=== PATIENT | male | born 1965 | race Caucasian/White ===

== ENCOUNTER → 2017-06-20 | Outpatient (REF) | payer OTHER ==
[~2017-06-20] MED LIST: ASPI81CH PO; ATIV2TAB PO; PERC7.5T12 PO
[2017-06-20 12:08] LABS: BASO # 0.1 10^3/uL (0.0-0.2); BASO % 1.2 % (0.0-1.0); EOS # 0.1 10^3/uL (0.0-0.50); EOS % 2.4 % (0.0-3.0); IMMATURE GRANULOCYTE % 0.2 % (0-0); LYMPH # 1.1 10^3/uL (1.5-4.5); LYMPH % 26.5 % (24.0-44.0); MEAN CORPUSCULAR HEMOGLOBIN 30.5 pg (27.0-33.0); MEAN CORPUSCULAR HGB CONC 33.3 g/dl (32.0-36.5); MEAN CORPUSCULAR VOLUME 91.6 fl (80.0-96.0); MONO # 0.4 10^3/uL (0.0-0.8); NEUTROPHILS # 2.5 10^3/uL (1.8-7.7); NEUTROPHILS % 59.7 % (36.0-66.0); PLATELET COUNT, AUTOMATED 301 10^3/uL (150-450); RED CELL DISTRIBUTION WIDTH 12.4 % (11.5-14.5); WHITE BLOOD COUNT 4.1 10^3/uL (4.0-10.0)
[2017-06-20 13:03] LABS: ALBUMIN 3.9 GM/DL (3.2-5.2); ALBUMIN/GLOBULIN RATIO 1.56 (1.00-1.93); ALKALINE PHOSPHATASE 62 U/L (45-117); ALT/SGPT 29 U/L (12-78); ANION GAP 6 MEQ/L (8-16); AST/SGOT 16 U/L (7-37); BILIRUBIN,TOTAL 0.7 MG/DL (0.2-1.0); BLOOD UREA NITROGEN 14 MG/DL (7-18); CALCIUM LEVEL 8.6 MG/DL (8.5-10.1); CARBON DIOXIDE LEVEL 31 MEQ/L (21-32); CHLORIDE LEVEL 105 MEQ/L (98-107); CHOLESTEROL LEVEL 179 MG/DL (<200); CREATININE FOR GFR 0.79 MG/DL (0.70-1.30); GLOMERULAR FILTRATION RATE > 60.0 (>56); GLUCOSE, FASTING 83 MG/DL (70-105); MAGNESIUM LEVEL 2.2 MG/DL (1.8-2.4); POTASSIUM SERUM 4.6 MEQ/L (3.5-5.1); SODIUM LEVEL 142 MEQ/L (136-145); TOTAL PROTEIN 6.4 GM/DL (6.4-8.2); TRIGLYCERIDES LEVEL 62 MG/DL (<150)
== END ==
LOC: M LABDRAW1 09:42
PROVIDERS: ATTEND Emergency Medicine
DX: Z00.00 Encounter for general adult medical examination without abnormal findings (principal); R25.2 Cramp and spasm

== ENCOUNTER 2018-02-03 09:43 | Emergency (ER) | payer OTHER ==
[2018-02-03] MEDS: KETOROLAC 60 MG/2 ML VIAL (J1885) IM (10:14)
== END 2018-02-03 10:34 | disposition home or self-care (01) ==
LOC: M ED 09:43
DX: M54.32 Sciatica, left side (principal); K21.9 Gastro-esophageal reflux disease without esophagitis; Z88.5 Allergy status to narcotic agent; Z79.899 Other long term (current) drug therapy
CPT/HCPCS: J1885

== ENCOUNTER 2018-06-15 08:09 | Day surgery (SDC) | payer OTHER ==
[2018-06-15] MEDS: NS 1,000 ML IV (09:00)
[2018-06-15] MEDS ORDERED: LIDOCAINE 2% INJ 100 MG/5 ML SDV (FOR ANES.) As Ordered (09:33)
[2018-06-15] MEDS ORDERED: PROPOFOL 200 MG/20 ML VIAL As Ordered ×2 (09:33→09:51)
== END 2018-06-15 10:25 | disposition home or self-care (01) ==
LOC: M OPP 08:09
DX: Z12.11 Encounter for screening for malignant neoplasm of colon (principal); K57.30 Diverticulosis of large intestine without perforation or abscess without bleeding; K64.8 Other hemorrhoids
CPT/HCPCS: 45378

== ENCOUNTER 2018-06-26 15:11 | Emergency (ER) | payer OTHER | END 2018-06-26 17:54 | disposition home or self-care (01) | LOC: M ED 15:11 | DX: Z76.0 Encounter for issue of repeat prescription (principal); K21.9 Gastro-esophageal reflux disease without esophagitis; Z88.5 Allergy status to narcotic agent | CPT/HCPCS: 99283 ==

== ENCOUNTER 2018-09-04 17:25 | Emergency (ER) | payer OTHER, SELFPAY ==
[~2018-09-04] VITALS: Ht 167.6 cm; Wt 75.0 kg
[~2018-09-04 17:25] MED LIST changes: +HYDR-3719 PO; +IBUP80TA PO; +NORC10TA21 PO; +NORCOTAB PO; +OMEP40CA2 PO; +ROBA500T PO; +VICO10TA11 PO
[2018-09-04 17:26] VITALS: BP 141/90
[2018-09-04] MEDS ORDERED: SILVER SULFADIAZINE 1% CR 50 GM JAR TOP ONE (18:30)
[2018-09-04] MEDS ORDERED: OMEP40CA2 PO (18:34)
[2018-09-04] MEDS ORDERED: NORC10TA21 PO (18:34)
== END 2018-09-04 18:55 | disposition home or self-care (01) ==
LOC: M ED 18:45
DX: T22.512A Corrosion of first degree of left forearm, initial encounter (principal); T65.891A Toxic effect of other specified substances, accidental (unintentional), initial encounter; Y92.89 Other specified places as the place of occurrence of the external cause; Z76.0 Encounter for issue of repeat prescription; M54.9 Dorsalgia, unspecified; M79.622 Pain in left upper arm; G89.29 Other chronic pain; Z88.5 Allergy status to narcotic agent

== ENCOUNTER 2018-12-09 09:11 | Emergency (ER) | payer OTHER ==
[~2018-12-09] VITALS: Ht 167.6 cm; Wt 74.5 kg
[2018-12-09 09:11] VITALS: BP 127/78
[~2018-12-09 09:11] MED LIST changes: +HYDR-3715 PO; -NORC10TA21 PO; +NORC1TAB5 PO; -NORCOTAB PO
[2018-12-09] MEDS ORDERED: ZYRTTAB8 PO (09:37)
[2018-12-09] MEDS ORDERED: MUCI600T31 PO (09:37)
[2018-12-09] MEDS ORDERED: FLON1SPR NARES (09:37)
== END 2018-12-09 09:57 | disposition home or self-care (01) ==
LOC: M ED 09:11
DX: J01.90 Acute sinusitis, unspecified (principal); J30.89 Other allergic rhinitis; Z88.5 Allergy status to narcotic agent

== ENCOUNTER → 2019-03-24 | Outpatient (CLI) | payer OTHER ==
[~2019-03-24] MED LIST changes: +FLON1SPR NARES; +MUCI600T31 PO; +ZYRTTAB8 PO
[2019-03-24 08:47] LABS: HEMATOCRIT 45.3 % (42.0-52.0); HEMOGLOBIN 14.9 g/dl (13.5-17.5); MEAN CORPUSCULAR HEMOGLOBIN 30.5 pg (27.0-33.0); MEAN CORPUSCULAR HGB CONC 32.9 g/dl (32.0-36.5); MEAN CORPUSCULAR VOLUME 92.6 fl (80.0-96.0); PLATELET COUNT, AUTOMATED 279 10^3/uL (150-450); RED BLOOD COUNT 4.89 10^6/uL (4.30-6.10); WHITE BLOOD COUNT 4.6 10^3/uL (4.0-10.0)
--- NOTE | 2019-03-24 08:51 | REP ---
PA and lateral chest: Comparison is 11/27/2009. The lung monsivais are clear. Cardiac size is normal. The maria luisa and mediastinum are unremarkable. There is scoliosis convex right, unchanged. There is an old right eighth rib fracture. Impression: No acute cardiopulmonary findings. Old right eighth rib fracture. Scoliosis. Electronically Signed by Aly Vyas MD 03/24/2019 08:42 A
[2019-03-24 09:07] LABS: HEMOGLOBIN A1c 5.6 %
[2019-03-24 09:18] LABS: ALBUMIN 3.8 GM/DL (3.2-5.2); ALT/SGPT 26 U/L (12-78); BILIRUBIN,TOTAL 0.3 MG/DL (0.2-1.0); BLOOD UREA NITROGEN 15 MG/DL (7-18); CALCIUM LEVEL 8.6 MG/DL (8.5-10.1); CARBON DIOXIDE LEVEL 32 MEQ/L (21-32); CHLORIDE LEVEL 107 MEQ/L (98-107); CHOLESTEROL LEVEL 181 MG/DL (<200); CHOLESTEROL RISK RATIO 3.016 (<5); CREATININE FOR GFR 0.82 MG/DL (0.70-1.30); FREE T4 0.87 NG/DL (0.76-1.46); GLOMERULAR FILTRATION RATE > 60.0 (>56); GLUCOSE, FASTING 100 MG/DL (70-100); HDL CHOLESTEROL 60 MG/DL (>40); LDL CHOLESTEROL 108 MG/DL (<100); NON-HDL-C 121 MG/DL; POTASSIUM SERUM 4.8 MEQ/L (3.5-5.1); PROSTATIC SPECIFIC AG MONITOR 0.42 NG/ML (< 4.00); SODIUM LEVEL 143 MEQ/L (136-145); TOTAL PROTEIN 6.2 GM/DL (6.4-8.2); TRIGLYCERIDES LEVEL 63 MG/DL (<150)
--- NOTE | 2019-03-24 14:53 | ECGEPIP ---
[facility] Test Date: 2019-03-24 Pat Name: DEBBIE CRAFT Department: Room: - Gender: Male Applied Research Director: CAYETANO : 1965 Requested By: Jovita Greene Order Number: [id number] Reading MD: Pedro Coombs Measurements Intervals [place] Rate: 59 P: 35 WA: 173 QRS: 31 QRSD: 94 T: 12 QT: 395 QTc: 393 Interpretive Statements SINUS BRADYCARDIA NO PRIOR Electronically Signed on 03-24-2019 14:53:29 EDT by Pedro Coombs
[2019-03-26 10:38] LABS: TESTOSTERONE 513 NG/DL (241-827)
[2019-03-26 10:39] LABS: TOTAL T3 106.8 NG/DL (60.0-181.0)
== END ==
LOC: M LAB 07:40
PROVIDERS: ATTEND Family Medicine
DX: D64.9 Anemia, unspecified (principal); E03.9 Hypothyroidism, unspecified; R53.83 Other fatigue

== ENCOUNTER → 2020-06-20 | Outpatient (CLI) | payer OTHER ==
[~2020-06-20] MED LIST changes: -OMEP40CA2 PO; +OMEP40CA97 PO
--- NOTE | 2020-06-20 13:11 | REP ---
INDICATION: SCIATICA COMPARISON: None TECHNIQUE: Four views each knee, five views lumbar spine FINDINGS: Right knee: There is slight tricompartmental marginal osteophytosis with patellofemoral joint space narrowing. There is no acute fracture, dislocation, or subluxation. There is asymmetric patellofemoral joint space narrowing which is moderate. Left knee: There is moderate tricompartmental marginal osteophytosis with medial compartmental narrowing and subchondral sclerosis. There is asymmetric patellofemoral joint space narrowing which is moderate to severe. Lumbar spine: There is bilateral marginal osteophytosis heaviest at the L1-2 level. There is anterior lipping from L1-L4. There is moderate to severe L3-4 disc space narrowing with more moderate disc space narrowing at all other levels. Vertebral body height and alignment is within normal limits. Degenerative facet joint changes are seen bilaterally at every level. The pedicles are intact bilaterally. There is partial sacralization of L5 on the left. IMPRESSION: Bilateral knee and lumbosacral spine chronic changes as described above. <Electronically signed by Aki Duran > 06/20/20 1291
== END ==
LOC: M RAD 09:42
PROVIDERS: ATTEND Family Medicine
DX: M54.30 Sciatica, unspecified side (principal); M25.761 Osteophyte, right knee; M25.762 Osteophyte, left knee; M25.78 Osteophyte, vertebrae; M51.36 Other intervertebral disc degeneration, lumbar region

== ENCOUNTER → 2021-05-18 | Outpatient (CLI) | payer BC ==
[~2021-05-18] MED LIST changes: +OMEP40CA4 PO; -OMEP40CA97 PO
[2021-05-18 10:57] LABS: HEMATOCRIT 45.2 % (42.0-52.0); MEAN CORPUSCULAR HEMOGLOBIN 30.3 pg (27.0-33.0); MEAN CORPUSCULAR HGB CONC 33.2 g/dl (32.0-36.5); MEAN CORPUSCULAR VOLUME 91.3 fl (80.0-96.0); PLATELET COUNT, AUTOMATED 296 10^3/uL (150-450); RED BLOOD COUNT 4.95 10^6/uL (4.30-6.10); WHITE BLOOD COUNT 4.9 10^3/uL (4.0-10.0)
[2021-05-18 11:31] LABS: HEMOGLOBIN A1c 5.1 %
[2021-05-18 11:36] LABS: ALBUMIN 3.8 GM/DL (3.2-5.2); ALT/SGPT 26 U/L (12-78); BILIRUBIN,TOTAL 0.6 MG/DL (0.2-1.0); BLOOD UREA NITROGEN 13 MG/DL (7-18); CALCIUM LEVEL 8.6 MG/DL (8.5-10.1); CARBON DIOXIDE LEVEL 30 MEQ/L (21-32); CHLORIDE LEVEL 107 MEQ/L (98-107); CHOLESTEROL LEVEL 207 MG/DL (<200); CHOLESTEROL RISK RATIO 2.915 (<5); CREATININE FOR GFR 0.85 MG/DL (0.70-1.30); GLOMERULAR FILTRATION RATE > 60.0 (>56); GLUCOSE, FASTING 85 MG/DL (70-100); HDL CHOLESTEROL 71 MG/DL (>40); LDL CHOLESTEROL 120 MG/DL (<100); NON-HDL-C 136 MG/DL; POTASSIUM SERUM 4.6 MEQ/L (3.5-5.1); SODIUM LEVEL 141 MEQ/L (136-145); TESTOSTERONE 678 NG/DL (241-827); TOTAL PROTEIN 6.5 GM/DL (6.4-8.2); TRIGLYCERIDES LEVEL 79 MG/DL (<150)
== END ==
LOC: M LAB 09:12
PROVIDERS: ATTEND Family Medicine
DX: E03.9 Hypothyroidism, unspecified (principal); R53.83 Other fatigue; D64.9 Anemia, unspecified

== ENCOUNTER → 2022-10-13 | Outpatient (REF) | payer BC ==
[2022-10-13 22:21] LABS: GC DNA AMPLIFICATION NEGATIVE (NEGATIVE)
== END ==
LOC: M WUC 19:42
PROVIDERS: ATTEND Student in an Organized Health Care Education/Training Program
DX: N48.29 Other inflammatory disorders of penis (principal)

== ENCOUNTER → 2023-06-28 | Outpatient (CLI) | payer BC, SELFPAY ==
[2023-06-28 18:58] LABS: BASO # 0.1 10^3/uL (0.0-0.2); EOS # 0.2 10^3/uL (0.0-0.5); HEMATOCRIT 43.5 % (42.0-52.0); HEMOGLOBIN 14.5 g/dl (13.5-17.5); LYMPH % 29.5 % (24.0-44.0); MEAN CORPUSCULAR HEMOGLOBIN 30.7 pg (27.0-33.0); MEAN CORPUSCULAR HGB CONC 33.3 g/dl (32.0-36.5); MONO # 0.4 10^3/uL (0.0-0.8); MONO % 6.6 % (2.0-8.0); NEUTROPHILS % 59.5 % (36.0-66.0); PLATELET COUNT, AUTOMATED 298 10^3/uL (150-450); RED BLOOD COUNT 4.73 10^6/uL (4.30-6.10); WHITE BLOOD COUNT 6.7 10^3/uL (4.0-10.0)
[2023-06-28 19:20] LABS: TOTAL IRON BINDING CAPACITY 298 UG/DL (250-425)
[2023-06-28 19:21] LABS: ALBUMIN 3.8 G/DL (3.2-5.2); ALKALINE PHOSPHATASE 67 U/L (46-116); ALT/SGPT 30 U/L (7.0-40); AST/SGOT 23 U/L (<34); BILIRUBIN,TOTAL 0.5 MG/DL (0.3-1.2); BLOOD UREA NITROGEN 13 MG/DL (9-23); CALCIUM LEVEL 8.8 MG/DL (8.5-10.1); CARBON DIOXIDE LEVEL 29 MMOL/L (20-31); CHLORIDE LEVEL 104 MMOL/L (98-107); CREATININE FOR GFR 0.76 MG/DL (0.70-1.30); GLOMERULAR FILTRATION RATE > 60.0 (>56); GLUCOSE, FASTING 118 MG/DL (60-100); IRON (FE) 56 UG/DL (65-175); PERCENT SATURATION 18.8 % (19.7-50.0); POTASSIUM SERUM 4.2 MMOL/L (3.5-5.1); SODIUM LEVEL 139 MMOL/L (136-145); TOTAL PROTEIN 6.1 G/DL (5.7-8.2)
[2023-06-28 19:23] LABS: FERRITIN 102.3 NG/ML (10.5-307.3); FREE T4 1.29 NG/DL (0.89-1.76); THYROID STIMULATING HORMONE 1.262 uIU/ML (0.55-4.78)
[2023-07-04 11:12] LABS: LYME PCR FOR BODY FLUID Negative (Negative)
== END ==
LOC: M LAB 17:17
PROVIDERS: ATTEND Internal Medicine
DX: R53.83 Other fatigue (principal); R53.1 Weakness

== ENCOUNTER → 2023-07-07 | Outpatient (REF) | payer BC, SELFPAY | LOC: M LAB REF 07-06 16:03 | PROVIDERS: ATTEND Internal Medicine | DX: R53.83 Other fatigue (principal); G89.4 Chronic pain syndrome; M15.9 Polyosteoarthritis, unspecified ==

== ENCOUNTER → 2024-07-27 | Outpatient (CLI) | payer BC | LOC: M PLAIMG 08:40 | PROVIDERS: ATTEND Physician Assistant Surgical | DX: M25.742 Osteophyte, left hand (principal) ==

== ENCOUNTER → 2024-08-02 | Outpatient (REF) | payer BC ==
[2024-08-02 16:48] LABS: C REACTIVE PROTEIN QUANTITATIV < 0.50 MG/DL (<1.0); RHEUMATOID FACTOR QUANT < 3.5 IU/ML (<14)
[2024-08-02 16:49] LABS: URIC ACID 5.1 MG/DL (3.7-9.2)
== END ==
LOC: M LAB REF 16:08
PROVIDERS: ATTEND Internal Medicine
DX: M15.9 Polyosteoarthritis, unspecified (principal)

== ENCOUNTER → 2025-02-11 | Outpatient (REF) | payer BC | LOC: M LAB REF 14:03 | PROVIDERS: ATTEND Nurse Practitioner Adult Health | DX: R53.83 Other fatigue (principal) ==